=== PATIENT | male | born 1980 | race Caucasian/White ===

== ENCOUNTER 2019-01-06 12:16 | Emergency (ER) | payer SELFPAY ==
[~2019-01-06] VITALS: Ht 170.2 cm; Wt 86.0 kg
[2019-01-06] MEDS ORDERED: TETANUS, DIPHTHERIA, PERTUSSIS VAC/PF 0.5ML (>7YR OLD) IM ONE (13:30)
[2019-01-06] MEDS ORDERED: IBUPROFEN 800MG TABLET PO ONE (13:30)
[2019-01-06] MEDS ORDERED: BACITRACIN ZINC OINT UDPKT TOP ONE (13:30)
[2019-01-06] MEDS ORDERED: LIDOCAINE HCL/PF 1% 10 MG/ML 5ML VIAL IJ ONE (13:30)
[2019-01-06 13:39] VITALS: BP 177/114
[2019-01-06] MEDS ORDERED: BACITRACIN 15GM TUBE TOP NR (14:00)
== END 2019-01-06 16:12 | disposition home or self-care (01) ==
LOC: ER 13:20
DX: S61.221A Laceration with foreign body of left index finger without damage to nail, initial encounter (principal); F17.200 Nicotine dependence, unspecified, uncomplicated; W26.8XXA Contact with other sharp object(s), not elsewhere classified, initial encounter; Y93.89 Activity, other specified; Y92.9 Unspecified place or not applicable
CPT/HCPCS: 73140; 90471; 90715; 99283; J3490